=== PATIENT | male | born 1960 | race Caucasian/White ===

== ENCOUNTER 2021-05-26 01:19 | Day surgery (SDC) | payer OTHER, SELFPAY ==
[2021-05-15 11:18] VITALS: BMI 31.4
[2021-05-26 09:45] VITALS: BP 128/86; PULSE 73; RESP 18; TEMP 36.1; O2SAT 98
[2021-05-26] MEDS: LACTATED RINGERS 1,000 ML 150 ML IV CONT (09:59)
--- NOTE | 2021-05-26 10:09 | P.PNAN_ITS ---
Anes - Initial Pre Proc Eval Procedure: Operation Date: 05/26/21 10:30 Proposed Procedures p Screening Colonoscopy - Hesham Brown MD Date/Time: 05/26/21 10:09 Surgeon: Hesham Brown MD Pre Op Diagnosis: neoplasm screening Patient Data Age: 60 Gender: M Height: 1.91 m Weight: 111.5 kg Last Vital Signs Temp 97.0 F L 05/26/21 09:45 Pulse 73 05/26/21 09:45 Resp 18 05/26/21 09:45 BP 128/86 05/26/21 09:45 Pulse Ox 98 05/26/21 09:45 Allergies Allergy/AdvReac Type Severity Reaction Status Date / Time Cephalosporins Allergy Unknown Other Verified 05/26/21 09:43 Penicillins Allergy Unknown Other Verified 05/26/21 09:43 Home Medications Medication Instructions Recorded Confirmed Type aspirin [Adult Low Dose Aspirin] 81 mg PO DAILY 05/15/21 05/26/21 History atorvastatin 10 mg PO DAILY 05/15/21 05/26/21 History ergocalciferol (vitamin D2) 50,000 unit PO 2XW 05/15/21 05/26/21 History flecainide 100 mg PO BID 05/15/21 05/26/21 History gabapentin [Gralise] 1,200 mg PO DAILY 05/15/21 05/26/21 History hydrochlorothiazide 25 mg PO DAILY 05/15/21 05/26/21 History losartan 50 mg PO DAILY 05/15/21 05/26/21 History metoprolol succinate 100 mg PO DAILY 05/15/21 05/26/21 History Patient hx anesthesia problems: none Family hx anesthesia problems: none [facility] Past Medical History Medical History (Updated 05/26/21 @ 10:08 by Armand Reese MD) Atrial fibrillation Hyperlipidemia Hypertension Social History Social History Smoking status: Never smoker Alcohol intake: current Alcohol use details: Monthly Living arrangements: alone Spiritual care concerns: No Anes - Eval Final PreProcedure Day of Procedure 05/26/21 10:09 Patient weight: obese Heart: regular rate and rhythm Lungs: clear to auscultation Airway: Mallampati scale class III Neurological: alert and oriented Last oral intake: >/= 8 hours ASA classification: III Emergent: no Anesthetic plan: proceed Anesthesia type and monitoring: general GIVS and standard monitoring Informed Consent: The patient's anesthetic plan and its attendant risks and benefits were discussed with the patient/family/POA. Questions were solicited and answers provided to the satisfaction of the patient/family/POA.
--- NOTE | 2021-05-26 10:20 | PM.HPGS ---
History of Present Illness History of Present Illness Consent: Risks, benefits, and alternatives have been discussed and questions answered. Patient agrees to proceed with procedure. Chief complaint: neoplasm screening Narrative: Damon Dye is a 60 year old male here for screening colonoscopy, last one 10 years ago. Review of Systems Constitutional: Constitutional: Denies headache(s) and Denies weakness Eyes: Eyes: Denies blurry vision ENT: Reports Normal hearing present, Denies headache(s) and Denies neck pain Cardiovascular: Cardiovascular: Denies chest pain and Denies dyspnea Respiratory: Respiratory: Denies dyspnea Gastrointestinal: Gastrointestinal: Reports no additional gastrointestinal complaints Genitourinary: Genitourinary: Denies dysuria Musculoskeletal: Musculoskeletal: Denies neck pain Integumentary/Breasts: Skin/Breast: Denies dry skin Neurologic: Reports Normal hearing present, Denies headache(s) and Denies weakness Psychiatric: Psychiatric: Denies anxiety Endocrine: Endocrine: Denies change in body appearance Hematologic/Lymphatic: Hematologic/Lymphatic: Denies easy bleeding Allergic/Immunologic: Allergic/Immunologic: Denies urticaria PMFSH Past Medical History Medical History (Updated 05/26/21 @ 10:21 by Hesham Brown MD) Atrial fibrillation Colon cancer screening Hyperlipidemia Hypertension Social History Social History Smoking status: Never smoker Alcohol intake: current Alcohol use details: Monthly Living arrangements: alone Spiritual care concerns: No Meds Home Medications and Allergies Home Medications Medication Instructions Recorded Confirmed Type aspirin [Adult Low Dose Aspirin] 81 mg PO DAILY 05/15/21 05/26/21 History atorvastatin 10 mg PO DAILY 05/15/21 05/26/21 History ergocalciferol (vitamin D2) 50,000 unit PO 2XW 05/15/21 05/26/21 History flecainide 100 mg PO BID 05/15/21 05/26/21 History gabapentin [Gralise] 1,200 mg PO DAILY 05/15/21 05/26/21 History hydrochlorothiazide 25 mg PO DAILY 05/15/21 05/26/21 History losartan 50 mg PO DAILY 05/15/21 05/26/21 History metoprolol succinate 100 mg PO DAILY 05/15/21 05/26/21 History Allergies Allergy/AdvReac Type Severity Reaction Status Date / Time Cephalosporins Allergy Unknown Other Verified 05/26/21 09:43 Penicillins Allergy Unknown Other Verified 05/26/21 09:43 Vital Signs Vital Signs - 24 hr 05/26/21 09:45 Temperature 97.0 F L Pulse Rate 73 Respiratory Rate 18 Blood Pressure 128/86 Pulse Oximetry 98 Exam Const: General: comfortable and no acute distress HENMT: General nose exam: Normal nares present Eyes: General: appearance normal, both eyes and all related structures Neck: Neck: no JVD Resp: Auscultation: clear to auscultation bilaterally Cardio: Rate: regular rate Rhythm: regular rhythm GI: Inspection: non-distended GI Palp: Yes Soft to palpation Skin: General skin exam: normal color Neuro: General: gait normal Speech: normal speech Extrem: General: normal to inspection Psych: Mental Status: mental status grossly normal Assessment and Plan Assessment and plan (1) Colon cancer screening: Code(s): Z12.11 - Encounter for screening for malignant neoplasm of colon Status: Acute Assessment and Plan: colonoscopy
[2021-05-26 10:43] VITALS: BP 115/76; PULSE 66; RESP 19; O2SAT 92
[2021-05-26 10:53] VITALS: BP 96/72; PULSE 67; RESP 16; O2SAT 98
[2021-05-26 11:03] VITALS: BP 115/86; PULSE 63; RESP 15; O2SAT 97
== END 2021-05-26 11:20 | disposition home or self-care (01) ==
PROVIDERS: PCP Internal Medicine; Visit Provider Internal Medicine Gastroenterology
PROC: 0DJD8ZZ Inspection of Lower Intestinal Tract, Via Natural or Artificial Opening Endoscopic (ICD-10-PCS; CPT 45378; principal; 2021-05-26 10:30)
DX: Z12.11 Encounter for screening for malignant neoplasm of colon (principal); K64.8 Other hemorrhoids; I48.91 Unspecified atrial fibrillation; I10 Essential (primary) hypertension; E78.5 Hyperlipidemia, unspecified; Z79.82 Long term (current) use of aspirin; E66.9 Obesity, unspecified; Z68.30 Body mass index [BMI] 30.0-30.9, adult
CPT/HCPCS: 45378; J2704; J7120